=== PATIENT | female | born 1995 | race African-American/Black ===

== ENCOUNTER 2023-11-17 15:20 | Emergency (ER) | payer OTHER ==
[~2023-11-17] VITALS: Ht 157.5 cm; Wt 86.4 kg
[2023-11-17 15:22] VITALS: TEMP 99
[2023-11-17] MEDS ORDERED: EMPA1TAB11 PO (15:29)
[2023-11-17] MEDS ORDERED: FEXO-353 PO (15:29)
[2023-11-17] MEDS ORDERED: FLUT1AER7 IH (15:29)
[2023-11-17] MEDS ORDERED: LEVO1TAB PO (15:29)
[2023-11-17] MEDS ORDERED: FAMO20 PO ×2 (15:29→23:01)
[2023-11-17] MEDS ORDERED: DOXE10CA42 PO (15:29)
[2023-11-17 16:05] LABS: BASOPHILS % (AUTO) 0.5 % (0.0-2.0); EOSINOPHILS % (AUTO) 1.9 % (1.0-6.0); HEMATOCRIT 44.5 % (36-46); HEMOGLOBIN 14.1 g/dL (12.0-16.0); LYMPHOCYTES % (AUTO) 10.6 % (22.0-44.0); MEAN CORPUSCULAR HEMOGLOBIN 26.2 pg (26.0-34.0); MEAN CORPUSCULAR HGB CONC 31.7 G/dL (31.0-37.0); MEAN CORPUSCULAR VOLUME 83 fL (80-100); MONOCYTES # (AUTO) 0.2 K/uL (0.1-1.0); MONOCYTES % (AUTO) 1.7 % (2.0-9.0); NEUTROPHILS # (AUTO) 8.4 K/uL (1.8-7.7); PLATELET COUNT (AUTO) 513 K/uL (150-450); RED BLOOD CELL COUNT(AUTO) 5.38 MIL/uL (4.00-5.20); RED CELL DISTRIBUTION WIDTH 13.5 % (11.5-14.5); WHITE BLOOD COUNT (AUTO) 9.8 K/uL (4.5-11.0)
[2023-11-17 16:08] LABS: NEUTROPHILS % (AUTO) 85.3 % (40.0-70.0)
[2023-11-17 16:12] LABS: ANION GAP 16 mmol/L (8-16); CALCIUM, TOTAL 9.2 mg/dL (8.8-10.5); CARBON DIOXIDE 22 mmol/L (22-29); CHLORIDE 101 mmol/L (98-107); CREATININE 0.77 mg/dL (0.60-1.30); GLOMERULAR FILTR. RATE CALC > 60 mL/min (>60); GLUCOSE,RANDOM 141 mg/dL (70-110); POTASSIUM 3.8 mmol/L (3.5-5.1); SODIUM SERUM 139 mmol/L (136-145); UREA NITROGEN, BLOOD 9 mg/dL (7-18)
[2023-11-17 16:17] LABS: ALANINE AMINOTRANSFERASE 14 U/L (12-78); ALBUMIN 3.5 g/dL (3.4-5.0); ALKALINE PHOSPHATASE 79 U/L (46-116); ASPARTATE AMINOTRANSFERASE 15 U/L (15-37); BILIRUBIN,TOTAL 0.3 mg/dL (0.1-1.0); LIPASE 31 U/L (16-77); TOTAL PROTEIN, SERUM 8.3 g/dL (6.4-8.2)
[2023-11-17 16:36] LABS: LACTIC ACID 2.1 mmol/L (0.4-2.0)
[2023-11-17] MEDS: SODIUM CHLORIDE 0.9% 2,000 ML IV ONE (17:10)
[2023-11-17] MEDS: FAMOTIDINE 20 MG/2 ML VIAL IVP ONE (17:11)
[2023-11-17] MEDS: ACETAMINOPHEN 500 MG TABLET PO ONE (17:11)
[2023-11-17] MEDS ORDERED: IOHEXOL 350 MG/ML 100 ML VIAL ONE (17:23)
[2023-11-17] MEDS ORDERED: SODIUM CHLORIDE 0.9% 100 ML ONE (17:24)
[2023-11-17 18:45] LABS: INFLUENZA A-RTPCR,COMBO NEGATIVE (NEGATIVE); INFLUENZA B-RTPCR,COMBO NEGATIVE (NEGATIVE); RESPIRATORY SYNCYTIAL VRS-PCR NEGATIVE (NEGATIVE); SARS COVID19 RTPCR, COMBO NEGATIVE (NEGATIVE)
[2023-11-17 20:33] LABS: APPEARANCE,URINE CLEAR (CLEAR); BILIRUBIN,URINE NEGATIVE (NEGATIVE); COLOR,URINE YELLOW (YELLOW); GLUCOSE, URINE (UA) NEGATIVE (NEGATIVE); KETONES,URINE 80-100 mg/dL (NEGATIVE); LEUKOCYTE ESTERASE ,URINE NEGATIVE (NEGATIVE); NITRATE,URINE NEGATIVE (NEGATIVE); OCCULT BLOOD,URINE NEGATIVE (NEGATIVE); PH,URINE 6.5 (5.0-8.0); PROTEIN,URINE 30-70 mg/dL (NEGATIVE); UROBILINOGEN,URINE <=1.0 mg/dL (<=1.0)
[2023-11-17 20:43] LABS: SPECIFIC GRAVITIY, URINE > 1.030 (1.003-1.030)
[2023-11-17 22:38] VITALS: BP 121/69; PULSE 68; RESP 18; O2SAT 99
[2023-11-17] MEDS ORDERED: ONDA-104 PO (23:01)
== END 2023-11-17 23:13 | disposition home or self-care (01) ==
LOC: EMS 15:24
DX: K80.20 Calculus of gallbladder without cholecystitis without obstruction (principal); K80.50 Calculus of bile duct without cholangitis or cholecystitis without obstruction; R11.2 Nausea with vomiting, unspecified; E11.9 Type 2 diabetes mellitus without complications; Z88.2 Allergy status to sulfonamides; Z88.6 Allergy status to analgesic agent; Z20.822 Contact with and (suspected) exposure to COVID-19
CPT/HCPCS: 99285; 74177; 96374; 0241U; 76705; 96361; 80048; 80076; 81003; 82009; 83605; 83690; 84703; 85025; 36415; Q9967; J3490; J7030; J7050